=== PATIENT | male | born 1975 | race Two or more races ===

== ENCOUNTER 2021-03-18 18:08 | Emergency (ER) | payer SELFPAY ==
[~2021-03-18] VITALS: Ht 172.7 cm; Wt 87.0 kg
[~2021-03-18 18:08] MED LIST: NAPR-685 PO
[2021-03-18 19:01] LABS: MICROSCOPIC INDICATED
[2021-03-18 19:07] LABS: BASOPHILS % (AUTO) 1 % (0-1); EOSINOPHILS % (AUTO) 3 % (1-7); LYMPHOCYTES % (AUTO) 37 % (22-44); MEAN CORPUSCULAR HEMOGLOBIN 32.2 pg (27.5-34.5); MEAN CORPUSCULAR HGB CONC 35.2 g/dL (33.2-36.2); MEAN PLATELET VOLUME 9.6 fL (7.4-10.4); MONOCYTES % (AUTO) 10 % (2-9); NEUTROPHILS % (AUTO) 49 % (42-75); PLATELET COUNT 90 x10^3/uL (130-400); RED BLOOD COUNT 5.37 x10^6/uL (4.38-5.82); RED CELL DISTRIBUTION WIDTH 13.7 % (9.4-14.8)
[2021-03-18 19:12] LABS: ALBUMIN 3.4 g/dL (3.4-5.0); ANION GAP 8 mmol/L (5-15); CALCIUM 8.6 mg/dL (8.5-10.1); CHLORIDE 102 mmol/L (98-107); CREATININE 0.71 mg/dL (0.7-1.3)
--- NOTE | 2021-03-18 19:31 | NUR ---
Pt to room from lobby at this time.
--- NOTE | 2021-03-18 19:49 | NUR ---
DR. CARRILLO AT BEDSIDE TO DISCUSS POC.
[2021-03-18 20:13] VITALS: BP 125/83
== END 2021-03-18 20:16 | disposition home or self-care (01) ==
LOC: ED 20:10
DX: B37.42 Candidal balanitis (principal); E11.65 Type 2 diabetes mellitus with hyperglycemia
CPT/HCPCS: 36415; 80048; 81001; 82040; 85025; 87077; 87086; 87147; 99283